=== PATIENT | male | born 2000 | race Caucasian/White ===

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

== ENCOUNTER 2018-05-05 17:42 | Emergency (ER) | payer OTHER | END 2018-05-05 18:30 | disposition home or self-care (01) | LOC: M ED 17:42 | DX: Z04.1 Encounter for examination and observation following transport accident (principal) | CPT/HCPCS: 99283 ==